=== PATIENT | female | born 1960 | race Caucasian/White ===

== ENCOUNTER → 2022-02-10 | Outpatient (CLI) | payer MEDICARE ==
--- NOTE | 2022-02-10 18:22 | Diagnostic Imaging Report ---
EXAMINATION: Lumbar spine radiographs. EXAM DATE: 02/10/2022 12:57 PM. COMPARISON: None available. HISTORY: Back pain. TECHNIQUE: 3 views. FINDINGS: Surgical changes from lumbosacral spinal fusion and spinal stimulator placement. There is multilevel lumbar spondylosis. Vertebral body heights and alignment are normal. Disc heights are normal. IMPRESSION: Surgical and degenerative changes of the lumbar spine without acute osseous abnormality. Dictated by: Dictated on workstation # [id number]
== END ==
LOC: RAD 12:24
DX: M47.816 Spondylosis without myelopathy or radiculopathy, lumbar region (principal)
CPT/HCPCS: 72100